=== PATIENT | female | born 1950 | race Caucasian/White ===

== ENCOUNTER 2024-08-03 10:15 | Emergency (ER) | payer OTHER, SELFPAY ==
[2024-08-03 10:21] VITALS: BP 164/89; PULSE 94; RESP 18; TEMP 36.4; O2SAT 97; BMI 28.5
[2024-08-03 10:53] LABS: MANUAL DIFF FLAG NO
[2024-08-03 10:55] LABS: Basophils Percent Auto 0.4 % (0-2); Eosinophils Absolute Auto 0.1 X10*3/uL (0.0-0.4); Hematocrit 44.4 % (37.0-47.0); Hemoglobin 14.7 g/dl (12.0-16.0); Imm Gran Abs Auto 0.01 X10*3/uL (0.00-0.03); Imm Gran Pct Auto 0.2 % (0.0-0.4); Lymphocytes Percent Auto 38.6 % (20-40); Mean Corpuscular HGB Conc 33.1 g/dl (31.0-35.0); Mean Corpuscular Hemoglobin 27.6 pg (27.0-33.0); Mean Corpuscular Volume 83.3 fL (80.0-98.0); Monocytes Absolute Auto 0.2 X10*3/uL (0.1-1.2); Monocytes Percent Auto 4.3 % (2-11); Neutrophils Absolute Auto 2.9 x10*3/uL (2.0-8.3); Neutrophils Percent Auto 55.5 % (45-73); Platelet Count 210 X10*3/uL (160-400); Red Blood Count 5.33 X10*6/uL (4.20-5.50); Red Cell Distribution Width 12.8 % (11.0-16.0); White Blood Count 5.2 X10*3/uL (4.8-10.8)
[2024-08-03 11:12] LABS: Alanine Aminotransferase 17 U/L (0-31); Albumin Level 4.4 g/dL (3.5-5.0); Anion Gap 17 (12-20); Aspartate Amino Transferase 21 U/L (5-31); Bilirubin Direct 0.1 mg/dL (0.0-0.5); Bilirubin Total 0.5 mg/dL (0.0-1.0); Blood Urea Nitrogen 14 mg/dL (9-16); Calcium 10.2 mg/dL (8.4-10.2); Carbon Dioxide 24 mmol/L (22-29); Chloride 105 mmol/L (96-108); Creatinine Clr Calc Pharmacy 55.4; Estimated Glomerular Filt Rate > 60; Glucose Random 135 mg/dL (60-115); Lipase 24 U/L (8-78); Potassium 3.6 mmol/L (3.3-5.1); Sodium 142 mmol/L (135-145); Total Protein 7.9 g/dL (6.5-8.0)
[2024-08-03 11:34] LABS: Influenza A PCR NEGATIVE (Negative); Influenza B PCR NEGATIVE (Negative); Resp Syncy Virus RNA Qual PCR NEGATIVE (Negative); SARS COV2 PCR INHOUSE NEGATIVE (Negative)
[2024-08-03 13:59] LABS: Alkaline Phosphatase 73 U/L (39-117)
--- NOTE | 2024-08-03 15:00 | ECG_ITS ---
Test Reason : heart palpitations Blood Pressure : / mmHG Vent. Rate : 071 BPM Atrial Rate : 071 BPM P-R Int : 136 ms QRS Dur : 074 ms QT Int : 410 ms P-R-T Axes : 040 007 039 degrees QTc Int : 445 ms Normal sinus rhythm Nonspecific T wave abnormality Abnormal ECG No previous ECGs available Referred By: Generic ED Physician Electronically Signed By:Siddhartha Nunez
--- NOTE | 2024-08-03 15:00 | PC.NURSE ---
Pt comes to triage and states she forgot to mention intermittent heart palpitations, EKG ordered
[2024-08-03 16:38] VITALS: BP 148/89; PULSE 83; RESP 16; TEMP 36.6; O2SAT 97
--- NOTE | 2024-08-03 16:59 | ED_ITS ---
HPI - General Adult General Chief complaint: General Medical Stated complaint: food poisoning ? Time Seen by Provider: 08/03/24 16:49 Source: patient Limitations: no limitations History of Present Illness ED Provider: Martha Fortune PA-C HPI narrative: 74-year-old female with a history of anxiety, hypertension and palpitations presents with diarrhea. Patient states she ate cheese cake 3 days ago, she realized after the fact it was . Patient had 1 episode of diarrhea. Patient denies ongoing abdominal pain, nausea, vomiting, recurrent episodes of diarrhea no fevers. Patient feels she has ?listeria?. She states she is developing neck stiffness, headache, palpitations, she also thinks she has ?meningitis?. Patient states she was looking up food poisoning on [employer], she found that she likely has list area and now she is developing meningitis. Related Data Allergies Allergy/AdvReac Type Severity Reaction Status Date / Time amoxicillin Allergy Diarrhea Verified 08/03/24 10:29 lisinopril AdvReac Confusion Verified 08/03/24 10:29 Review of Systems 2 Review of Systems: Yes all other systems are reviewed and are negative Constitutional: Constitutional: Denies fatigue, Denies fever(s) and Reports headache(s) ENT: Reports headache(s) and Reports neck pain Cardiovascular: Cardiovascular: Denies chest pain, Reports rapid heart rate and Denies dyspnea Respiratory: Respiratory: Denies dyspnea Gastrointestinal: Gastrointestinal: Denies abdominal pain, Denies diarrhea, Denies nausea and Denies vomiting Musculoskeletal: Musculoskeletal: Reports neck pain Neurologic: Reports headache(s) Endocrine: Endocrine: Denies fatigue PMF Past Medical History Attestation statement: The following information was validated with the patient. Social History Social History Smoked in Last 30 Days: No Advance Directives: No Advance Directives Information Provided: No Physical Exam ED Vital Signs: Vital Signs - 24 hr 08/03/24 10:21 08/03/24 16:38 Temperature 97.5 F 97.9 F Pulse Rate 94 83 Respiratory Rate 18 16 Blood Pressure 164/89 H 148/89 H Pulse Oximetry 97 97 Oxygen Delivery Method Room Air Room Air BMI result Body Mass Index 28.5 Const Other: Alert, overall well-appearing Orientation/consciousness: patient oriented x3 Neck Other: Soft, supple, full range of motion, no meningeal signs Resp Other: Nonlabored respiration Cardio Other: Normal peripheral perfusion GI Other: Abdomen is soft, nondistended nontender no guarding Skin Other: Warm dry no rash Neuro General: patient oriented x3, gait normal, no focal motor deficits and CN's II- XI intact bilaterally Psych Other: Cooperative, anxious Medical Decision Making Medical Decision Making [facility] Narrative: 74-year-old female with a history of anxiety, hypertension and palpitations presents with diarrhea. Patient states she ate cheese cake 3 days ago, she realized after the fact it was . Patient had 1 episode of diarrhea. Patient denies ongoing abdominal pain, nausea, vomiting, recurrent episodes of diarrhea no fevers. Patient feels she has ?listeria?. She states she is developing neck stiffness, headache, palpitations, she also thinks she has ?meningitis?. Patient states she was looking up food poisoning on [employer], she found that she likely has list area and now she is developing meningitis. Problem: Anxiety History: Per patient I have considered the following differential diagnoses: Viral gastroenteritis, food poisoning, lactose intolerance, meningitis, anxiety, panic attack Plan: The patient does not have listeria she does not have meningitis. I have explained at length that she will be extremely ill if she had listeria, furthermore there was absolutely no objective evidence of meningitis on exam. She had 1 episode of diarrhea, this does not constitute food poisoning nor viral gastroenteritis. She likely has lactose intolerance. Screening labs were obtained and are completely unremarkable. I feel the patient is anxiety is poorly controlled, she could benefit from outpatient therapy. No indication for further medical assessment in the way of imaging. I have independently reviewed the following tests: Labs: No leukocytosis, not anemic, no electrolyte abnormality. Lab Data 08/03/24 10:48 08/03/24 10:48 Labs: Lab Results 08/03/24 Range/Units 10:48 WBC 5.2 (4.8-10.8) X10*3/uL RBC 5.33 (4.20-5.50) X10*6/uL Hgb 14.7 (12.0-16.0) g/dl Hct 44.4 (37.0-47.0) % MCV 83.3 (80.0-98.0) fL MCH 27.6 (27.0-33.0) pg MCHC 33.1 (31.0-35.0) g/dl RDW 12.8 (11.0-16.0) % Plt Count 210 (160-400) X10*3/uL MPV 10.0 (9.4-12.3) fL Immature Gran % (Auto) 0.2 (0.0-0.4) % Neut % (Auto) 55.5 (45-73) % Lymph % (Auto) 38.6 (20-40) % Angelina % (Auto) 4.3 (2-11) % Eos % (Auto) 1.0 (0-4) % Baso % (Auto) 0.4 (0-2) % Lymph # (Auto) 2.0 (1.2-4.9) X10*3/uL Angelina # (Auto) 0.2 (0.1-1.2) X10*3/uL Eos # (Auto) 0.1 (0.0-0.4) X10*3/uL Baso # (Auto) 0.0 (0.0-0.2) X10*3/uL Abs Immat Gran (auto) 0.01 (0.00-0.03) X10*3/uL Absolute Neuts (auto) 2.9 (2.0-8.3) x10*3/uL Absolute Nucleated RBC 0.000 (0.0-0.012) X10*3/uL Nucleated RBC % (auto) 0.0 (0.0-0.2) /100WBC Sodium 142 (135-145) mmol/L Potassium 3.6 (3.3-5.1) mmol/L Chloride 105 (96-108) mmol/L Carbon Dioxide 24 (22-29) mmol/L Anion Gap 17 (12-20) BUN 14 (9-16) mg/dL Creatinine 0.80 (0.5-1.4) mg/dL Estim Creat Clear Calc 55.4 Estimated GFR > 60 Random Glucose 135 H (60-115) mg/dL Calcium 10.2 (8.4-10.2) mg/dL Total Bilirubin 0.5 (0.0-1.0) mg/dL Direct Bilirubin 0.1 (0.0-0.5) mg/dL AST 21 (5-31) U/L ALT 17 (0-31) U/L Alkaline Phosphatase 73 (39-117) U/L Total Protein 7.9 (6.5-8.0) g/dL Albumin 4.4 (3.5-5.0) g/dL Lipase 24 (8-78) U/L Influenza Type A (PCR) NEGATIVE (Negative) Influenza Type B (PCR) NEGATIVE (Negative) RSV RNA Qual (PCR) NEGATIVE (Negative) SARS-CoV-2 RNA (RT-PCR) NEGATIVE (Negative) Discharge Plan Discharge Clinical Impression: Diarrhea, Anxiety Patient Disposition: Home, Self-Care Additional Instructions: All of your labs were normal. You were screened for influenza a and B, COVID and RSV, the viral panel was negative as well. Follow up with your primary care provider as needed. Interventions: ED Discharge Assessment Last Done: 08/03/24 17:39 Discharge Date/Time: 08/03/24 17:40 Print Language: Albanian
[2024-08-03 17:39] VITALS: BP 148/89; PULSE 80; RESP 16; TEMP 36.6; O2SAT 97
== END 2024-08-03 17:40 | disposition home or self-care (01) ==
PROVIDERS: Emergency Provider Internal Medicine; PCP Internal Medicine
DX: R19.7 Diarrhea, unspecified (principal); F41.9 Anxiety disorder, unspecified; Z03.818 Encounter for observation for suspected exposure to other biological agents ruled out
CPT/HCPCS: 0241U; 36415; 80053; 82248; 83690; 85025; 93005; 99283; 99284

== ENCOUNTER → 2024-08-03 15:00 | Outpatient (BNV) | payer OTHER, SELFPAY | PROVIDERS: Emergency Provider Internal Medicine; PCP Internal Medicine; Visit Provider Internal Medicine Cardiovascular Disease | DX: R00.2 Palpitations (principal); R94.31 Abnormal electrocardiogram [ECG] [EKG] | CPT/HCPCS: 93010 ==